=== PATIENT | female | born 1995 | race Caucasian/White ===

== ENCOUNTER 2016-11-12 00:21 | Inpatient (IN) | payer MEDICAID ==
[~2016-11-12] VITALS: Ht 165.1 cm; Wt 52.6 kg
[2016-11-12] MEDS ORDERED: DIVA250T4 PO (03:03)
[2016-11-12] MEDS ORDERED: LORazepam 2 MG TABLET PO PRN (03:45)
[2016-11-12] MEDS ORDERED: HALOPERIDOL 5 MG TABLET PO PRN (03:45)
[2016-11-12 05:10] VITALS: BP 121/75
[2016-11-12 05:39] VITALS: BP 119/76
[2016-11-12] MEDS ORDERED: INFLUENZA VIRUS VACCINE QVS 2016-17 (3YR+)/PF 60 MCG/0.5 ML SYRINGE IM ONE (06:00)
[2016-11-12 12:58] VITALS: BP 125/74
[2016-11-12 16:11] VITALS: BP 130/68
[2016-11-13 07:03] VITALS: BP 123/67
[2016-11-13] MEDS: FLUoxetine HCL 20 MG CAPSULE PO SCH (08:18)
[2016-11-13] MEDS: OLANZapine 5 MG TABLET PO SCH (08:19)
[2016-11-13 09:14] LABS: BASOPHILS % (AUTO) 0.8 % (0.0-2.0); EOSINOPHILS % (AUTO) 1.2 % (1.0-6.0); HEMATOCRIT 39.9 % (36-46); HEMOGLOBIN 13.1 g/dL (12.0-16.0); LYMPHOCYTES # (AUTO) 1.5 K/uL (1.0-4.8); LYMPHOCYTES % (AUTO) 24.5 % (22.0-44.0); MEAN CORPUSCULAR HGB CONC 32.8 G/dL (31.0-37.0); MEAN CORPUSCULAR VOLUME 95 fL (80-100); MONOCYTES # (AUTO) 0.7 K/uL (0.1-1.0); MONOCYTES % (AUTO) 11.1 % (2.0-9.0); NEUTROPHILS # (AUTO) 3.8 K/uL (1.8-7.7); NEUTROPHILS % (AUTO) 62.4 % (40.0-70.0); PLATELET COUNT (AUTO) 196 K/uL (150-450); RED BLOOD CELL COUNT(AUTO) 4.22 MIL/uL (4.00-5.20); RED CELL DISTRIBUTION WIDTH 13.9 % (11.5-14.5)
[2016-11-13 10:54] LABS: ALANINE AMINOTRANSFERASE 12 U/L (12-78); ALBUMIN 3.9 g/dL (3.4-5.0); ANION GAP 7 mmol/L (8-16); ASPARTATE AMINOTRANSFERASE 13 U/L (15-37); BILIRUBIN,TOTAL 0.5 mg/dL (0.1-1.0); CALCIUM, TOTAL 9.2 mg/dL (8.8-10.5); CARBON DIOXIDE 29 mmol/L (22-29); CHLORIDE 102 mmol/L (98-107); CHOL/HDL RATIO 2.8 (3.9-5.7); CREATININE 0.71 mg/dL (0.60-1.30); GLOMERULAR FILTR. RATE CALC > 60 mL/min (>60); POTASSIUM 4.1 mmol/L (3.5-5.1); SODIUM SERUM 138 mmol/L (136-145); TOTAL PROTEIN, SERUM 7.1 g/dL (6.4-8.2); UREA NITROGEN, BLOOD 11 mg/dL (7-18)
[2016-11-13 10:58] LABS: HEMOGLOBIN A1C 5.1 % (4.5-6.2)
[2016-11-13 16:05] VITALS: BP 136/78
[2016-11-14 06:09] VITALS: BP 117/71
[2016-11-14] MEDS: OLANZapine 5 MG TABLET PO SCH (08:14)
[2016-11-14] MEDS: FLUoxetine HCL 20 MG CAPSULE PO SCH (08:14)
[2016-11-14 08:20] VITALS: BP 140/73
[2016-11-14 16:10] VITALS: BP 120/69
[2016-11-15 06:15] VITALS: BP 122/71
[2016-11-15] MEDS: FLUoxetine HCL 20 MG CAPSULE PO SCH (08:01)
[2016-11-15] MEDS: OLANZapine 5 MG TABLET PO SCH (08:01)
[2016-11-15 08:02] VITALS: BP 148/78
[2016-11-15 08:19] LABS: APPEARANCE,URINE CLEAR (CLEAR); GLUCOSE, URINE (UA) NEGATIVE (NEGATIVE); KETONES,URINE NEGATIVE (NEGATIVE); LEUKOCYTE ESTERASE ,URINE NEGATIVE (NEGATIVE); OCCULT BLOOD,URINE TRACE (NEGATIVE); PH,URINE 7.5 (5.0-8.0); PROTEIN,URINE NEGATIVE (NEGATIVE)
[2016-11-15 08:26] LABS: ADD UA MICROSCOPIC YES
[2016-11-15 08:30] LABS: RBC,URINE 0-2 /HPF (0-2); SQUAMOUS EPITHELIAL CELL,UR Few /LPF (None Seen); WBC,URINE None Seen /HPF (0-5)
[2016-11-15] MEDS ORDERED: OLAN5TAB2 PO (14:02)
[2016-11-15] MEDS ORDERED: FLUO-191 PO (14:02)
== END 2016-11-15 19:02 | disposition home or self-care (01) | DRG 751 ==
LOC: EDSTATUS 01:03 → B3A 03:52
PROVIDERS: ADMIT Psychiatry & Neurology Child & Adolescent Psychiatry; ATTEND Psychiatry & Neurology Child & Adolescent Psychiatry
PROC: 3E0234Z Introduction of Serum, Toxoid and Vaccine into Muscle, Percutaneous Approach (ICD-10-PCS; principal; 2016-11-12)
DX: F33.3 Major depressive disorder, recurrent, severe with psychotic symptoms (principal); I10 Essential (primary) hypertension; F43.10 Post-traumatic stress disorder, unspecified; F60.3 Borderline personality disorder; F12.90 Cannabis use, unspecified, uncomplicated; F17.200 Nicotine dependence, unspecified, uncomplicated; Z91.5 Personal history of self-harm; Z62.819 Personal history of unspecified abuse in childhood; Z23 Encounter for immunization
CPT/HCPCS: 80307; 83036; 84439; 84443; 90471

== ENCOUNTER 2017-01-12 15:55 | Inpatient (IN) | payer MEDICAID ==
[~2017-01-12] VITALS: Ht 160 cm; Wt 54.0 kg
[~2017-01-12 15:55] MED LIST: FLUO-191 PO; OLAN5TAB2 PO
[2017-01-12 18:20] VITALS: BP 116/61
[2017-01-13 07:04] VITALS: BP 110/72
[2017-01-13] MEDS: OLANZapine 10 MG TABLET PO SCH (08:20)
[2017-01-13 08:41] VITALS: BP 139/64
[2017-01-13] MEDS ORDERED: FLUoxetine HCL 20 MG CAPSULE PO ONE (08:45)
[2017-01-13] MEDS ORDERED: FLUoxetine HCL 20 MG CAPSULE PO SCH ×2 (09:00)
[2017-01-13 09:04] LABS: EOSINOPHILS % (AUTO) 0.9 % (1.0-6.0); HEMATOCRIT 40.8 % (36-46); HEMOGLOBIN 13.2 g/dL (12.0-16.0); LYMPHOCYTES # (AUTO) 2.3 K/uL (1.0-4.8); LYMPHOCYTES % (AUTO) 43.3 % (22.0-44.0); MEAN CORPUSCULAR HEMOGLOBIN 31.5 pg (26.0-34.0); MEAN CORPUSCULAR HGB CONC 32.5 G/dL (31.0-37.0); MEAN CORPUSCULAR VOLUME 97 fL (80-100); MONOCYTES # (AUTO) 0.4 K/uL (0.1-1.0); MONOCYTES % (AUTO) 7.7 % (2.0-9.0); NEUTROPHILS # (AUTO) 2.5 K/uL (1.8-7.7); NEUTROPHILS % (AUTO) 47.1 % (40.0-70.0); PLATELET COUNT (AUTO) 238 K/uL (150-450); RED CELL DISTRIBUTION WIDTH 14.8 % (11.5-14.5); WHITE BLOOD COUNT (AUTO) 5.2 K/uL (4.5-11.0)
[2017-01-13 09:43] LABS: HEMOGLOBIN A1C 4.9 % (4.5-6.2)
[2017-01-13 10:49] LABS: ALANINE AMINOTRANSFERASE 11 U/L (12-78); ALBUMIN 3.9 g/dL (3.4-5.0); ANION GAP 7 mmol/L (8-16); ASPARTATE AMINOTRANSFERASE 15 U/L (15-37); BILIRUBIN,TOTAL 0.3 mg/dL (0.1-1.0); CALCIUM, TOTAL 9.1 mg/dL (8.8-10.5); CARBON DIOXIDE 31 mmol/L (22-29); CHLORIDE 105 mmol/L (98-107); CHOL/HDL RATIO 2.3 (3.9-5.7); CREATININE 0.74 mg/dL (0.60-1.30); GLOMERULAR FILTR. RATE CALC > 60 mL/min (>60); POTASSIUM 4.9 mmol/L (3.5-5.1); SODIUM SERUM 143 mmol/L (136-145); THYROID STIMULATING HORMONE 0.48 uIU/mL (0.36-3.74); TOTAL PROTEIN, SERUM 7.4 g/dL (6.4-8.2); UREA NITROGEN, BLOOD 21 mg/dL (7-18)
[2017-01-13 16:38] VITALS: BP 117/65
[2017-01-13] MEDS: ZOLPIDEM TARTRATE 10 MG TABLET PO PRN (21:07)
[2017-01-14 06:28] VITALS: BP 115/76
[2017-01-14] MEDS: OLANZapine 10 MG TABLET PO SCH (08:09)
[2017-01-14 08:43] VITALS: BP 131/76
[2017-01-14] MEDS: LORazepam 2 MG TABLET PO PRN ×2 (12:11→17:41)
[2017-01-14 16:00] VITALS: BP 127/78
[2017-01-14] MEDS: ZOLPIDEM TARTRATE 10 MG TABLET PO PRN (20:57)
[2017-01-15] MEDS: FLUoxetine HCL 20 MG CAPSULE PO SCH (08:43)
[2017-01-15] MEDS: LORazepam 2 MG TABLET PO PRN ×3 (08:44→22:16)
[2017-01-15] MEDS: OLANZapine 10 MG TABLET PO SCH (08:44)
[2017-01-15 08:48] VITALS: BP 114/79
[2017-01-15 16:11] VITALS: BP 137/74
[2017-01-15] MEDS: ZOLPIDEM TARTRATE 10 MG TABLET PO PRN (20:38)
[2017-01-16 06:28] VITALS: BP 124/75
[2017-01-16] MEDS: LORazepam 2 MG TABLET PO PRN ×4 (07:26→21:27)
[2017-01-16] MEDS: OLANZapine 10 MG TABLET PO SCH (09:53)
[2017-01-16] MEDS: FLUoxetine HCL 20 MG CAPSULE PO SCH (09:53)
[2017-01-16 10:06] VITALS: BP 135/84
[2017-01-16] MEDS ORDERED: PETROLATUM,WHITE 71 GM JELLY TP PRN (12:00)
[2017-01-16 16:17] VITALS: BP 127/69
[2017-01-16] MEDS: ZOLPIDEM TARTRATE 10 MG TABLET PO PRN (20:12)
[2017-01-17 05:51] VITALS: BP 127/76
[2017-01-17] MEDS: OLANZapine 10 MG TABLET PO SCH (08:05)
[2017-01-17] MEDS: FLUoxetine HCL 20 MG CAPSULE PO SCH (08:05)
[2017-01-17 08:16] VITALS: BP 122/66
[2017-01-17 16:05] VITALS: BP 141/79
[2017-01-17] MEDS: LORazepam 2 MG TABLET PO PRN ×2 (16:08→20:08)
[2017-01-17] MEDS: ZOLPIDEM TARTRATE 10 MG TABLET PO PRN (20:08)
[2017-01-18 06:46] VITALS: BP 120/74
[2017-01-18 08:05] VITALS: BP 132/76
[2017-01-18] MEDS: OLANZapine 10 MG TABLET PO SCH (08:15)
[2017-01-18] MEDS: FLUoxetine HCL 20 MG CAPSULE PO SCH (08:15)
[2017-01-18 08:18] LABS: GLUCOSE, URINE (UA) NEGATIVE (NEGATIVE); KETONES,URINE NEGATIVE (NEGATIVE); LEUKOCYTE ESTERASE ,URINE NEGATIVE (NEGATIVE); OCCULT BLOOD,URINE NEGATIVE (NEGATIVE); PROTEIN,URINE NEGATIVE (NEGATIVE)
[2017-01-18 09:27] LABS: ADD UA MICROSCOPIC YES; APPEARANCE,URINE SLIGHTLY CLOUDY (CLEAR)
[2017-01-18 09:29] LABS: RBC,URINE None Seen /HPF (0-2); SQUAMOUS EPITHELIAL CELL,UR Moderate /LPF (None Seen); WBC,URINE None Seen /HPF (0-5)
[2017-01-18 09:30] LABS: AMORPHOUS SEDIMENT,UR Few /LPF (None Seen)
[2017-01-18 16:10] VITALS: BP 116/62
[2017-01-18] MEDS: LORazepam 2 MG TABLET PO PRN (16:30)
[2017-01-18] MEDS: ZOLPIDEM TARTRATE 10 MG TABLET PO PRN (20:11)
[2017-01-19 05:57] VITALS: BP 127/77
[2017-01-19] MEDS: OLANZapine 10 MG TABLET PO SCH (08:16)
[2017-01-19] MEDS: FLUoxetine HCL 20 MG CAPSULE PO SCH (08:16)
[2017-01-19 08:39] VITALS: BP 120/62
[2017-01-19] MEDS: LORazepam 2 MG TABLET PO PRN (13:15)
[2017-01-19 16:37] VITALS: BP 127/58
[2017-01-19 17:22] LABS: GC DNA N.A. AMPLIFY Negative (Negative)
[2017-01-20 06:30] VITALS: BP 124/62
[2017-01-20] MEDS: OLANZapine 10 MG TABLET PO SCH (07:58)
[2017-01-20] MEDS: FLUoxetine HCL 20 MG CAPSULE PO SCH (07:58)
[2017-01-20 08:12] VITALS: BP 129/68
[2017-01-20] MEDS: LORazepam 2 MG TABLET PO PRN ×3 (08:12→18:00)
[2017-01-20 16:09] VITALS: BP 115/62
[2017-01-20] MEDS: ZOLPIDEM TARTRATE 10 MG TABLET PO PRN (21:01)
[2017-01-21 06:10] VITALS: BP 133/78
[2017-01-21] MEDS: FLUoxetine HCL 20 MG CAPSULE PO SCH (07:54)
[2017-01-21] MEDS: OLANZapine 10 MG TABLET PO SCH (07:55)
[2017-01-21 08:34] VITALS: BP 118/75
[2017-01-21] MEDS: LORazepam 2 MG TABLET PO PRN (14:42)
[2017-01-21 16:00] VITALS: BP 125/68
[2017-01-21] MEDS: ZOLPIDEM TARTRATE 10 MG TABLET PO PRN (20:50)
[2017-01-22] MEDS ORDERED: OLAN7.5T2 PO (01:59)
[2017-01-22] MEDS ORDERED: FLUO-191 PO (01:59)
[2017-01-22 04:43] VITALS: BP 121/76
[2017-01-22] MEDS: OLANZapine 10 MG TABLET PO SCH (08:07)
[2017-01-22] MEDS: FLUoxetine HCL 20 MG CAPSULE PO SCH (08:07)
[2017-01-22 08:50] VITALS: BP 119/71
== END 2017-01-22 13:46 | disposition home or self-care (01) | DRG 753 ==
LOC: B3A 17:38
PROVIDERS: ADMIT Psychiatry & Neurology Child & Adolescent Psychiatry; ATTEND Psychiatry & Neurology Child & Adolescent Psychiatry
DX: F31.4 Bipolar disorder, current episode depressed, severe, without psychotic features (principal); R45.851 Suicidal ideations; Z91.14 Patient's other noncompliance with medication regimen; F20.9 Schizophrenia, unspecified; E78.5 Hyperlipidemia, unspecified; F41.9 Anxiety disorder, unspecified; F10.10 Alcohol abuse, uncomplicated; F19.10 Other psychoactive substance abuse, uncomplicated; Z71.41 Alcohol abuse counseling and surveillance of alcoholic; Z71.51 Drug abuse counseling and surveillance of drug abuser; Z91.5 Personal history of self-harm
CPT/HCPCS: 80307; 83036; 84439; 84443; 87081; 87491; 87591